=== PATIENT | female | born 1955 | race Two or more races ===

== ENCOUNTER 2024-12-16 12:39 | Emergency (ER) | payer OTHER, MEDICARE ==
[~2024-12-16] VITALS: Ht 160 cm; Wt 65.0 kg
[2024-12-16 12:44] VITALS: BP 154/79; PULSE 69; RESP 16; TEMP 97.5; O2SAT 95
== END 2024-12-16 15:23 | disposition left against medical advice (07) ==
LOC: ER 12:39
DX: R20.0 Anesthesia of skin (principal); R53.1 Weakness; Z53.21 Procedure and treatment not carried out due to patient leaving prior to being seen by health care provider